=== PATIENT | female | born 1960 | race Caucasian/White ===

== ENCOUNTER 2016-07-22 13:19 | Emergency (ER) | payer BC ==
[2016-07-22] MEDS ORDERED: methylPREDNISolone SOD SUCC* 125 MG 2 ML VIAL IV ONE (13:20)
[2016-07-22] MEDS ORDERED: diPHENhydraMINE IV* 50 MG/ML 1 ml VIAL (BENADRYL) IV ONE (13:20)
[2016-07-22] MEDS ORDERED: Famotidine IV* 10 MG/ML 2 ML (20 mg) IV ONE (13:20)
[2016-07-22] MEDS ORDERED: EPINEPHrine AMP 1 MG/ML IM ONE (13:21)
[2016-07-22] MEDS: NS 0.9% 1000 ML* 2,000 ML IV ONE (13:25)
[2016-07-22 15:20] VITALS: BP 121/88
--- NOTE | 2016-07-22 15:20 | ED ---
Nathan Cade Adam, scribed for Cortez Johnson MD on 07/22/16 at 1328 . Allergic Reaction/Systemic - HPI Summary HPI Summary: Pt is a 55 year old female presenting with an apparent allergic reaction. She states that after having lunch at [facility] she began to feel dizzy and shortly afterwards developed a rash. She denies losing consciousness. She presents with generalized erythema over her body and she also c/o numbness in her lips and tongue. Pt states that she ate scallop potatoes with ham and stir fried bok linda for lunch. Pt also reports that she had a ALEXIS this morning for which she took Tylenol. - History of Current Complaint Chief Complaint: EDAllergicReaction Hx Obtained From: Patient Onset/Duration: Sudden Onset, Started minutes ago, Still Present Timing: Constant Severity Initially: Moderate Severity Currently: Moderate Location: Diffuse Aggravating Factor(s): Other - Lunch, possibly Alleviating Factor(s): Nothing Associated Signs And Symptoms: Positive: Rash, Other: - Dizziness, numbness of lips and tongue - Allergies/Home Medications Allergies/Adverse Reactions: Allergies Allergy/AdvReac Type Severity Reaction Status Date / Time Polymyxin B Allergy Rash And Verified 07/22/16 13:51 Itching MONASTAT Allergy Intermediate Hives Uncoded 07/22/16 13:51 PMH/Surg Hx/FS Hx/Imm Hx Endocrine/Hematology History: Denies: Hx Diabetes Cardiovascular History: Reports: Hx Angina, Other Cardiovascular Problems/ Disorders - RBBB ASYMPTOMATIC Respiratory History: Denies: Hx Asthma, Hx Chronic Obstructive Pulmonary Disease (COPD) GI History: Reports: Other GI Disorders - GALLBLADDER WITH RUQ PAIN History: Reports: Other Problems/Disorders - ONLY HAS 1 KIDNEY Musculoskeletal History: Reports: Other Musculoskeletal History - LOW BACK PAIN Sensory History: Reports: Hx Contacts or Glasses Denies: Hx Hearing Aid Opthamlomology History: Reports: Hx Contacts or Glasses Neurological History: Reports: Hx Migraine - POST MENOPAUSAL STARTED 07/2015 H/ A NO MEDS - Cancer History Hx Chemotherapy: No Hx Radiation Therapy: No - Surgical History Hx Anesthesia Reactions: No - Family History Known Family History: Positive: Other - Negative: malignant hyperthermia, anesthesia reaction, breast CA - Social History Occupation: Employed Full-time Lives: With Family - Alcohol Use: Weekly Alcohol Amount: 1-2 GLASSES WINE WEEKLY Hx Substance Use: No Substance Use Type: Reports: None Hx Tobacco Use: No Smoking Status (MU): Never Smoked Tobacco Review of Systems Negative: Fever Positive: Rash Neurological: Other - Dizziness Positive: Numbness - Lips and tongue All Other Systems Reviewed And Are Negative: Yes Physical Exam Triage Information Reviewed: Yes Vital Signs On Initial Exam: Initial Vitals Temp Pulse Resp BP Pulse Ox 97.8 F 104 14 74/50 98 07/22/16 13:20 07/22/16 13:20 07/22/16 13:20 07/22/16 13:20 07/22/16 13:20 Vital Signs Reviewed: Yes Appearance: Positive: Well-Appearing, No Pain Distress Skin: Positive: Other - Generalized erythema with blanching rash Head/Face: Positive: Normal Head/Face Inspection Eyes: Positive: EOMI, LUANN ENT: Positive: Normal ENT inspection Neck: Positive: Supple, Nontender Respiratory/Lung Sounds: Positive: Clear to Auscultation, Breath Sounds Present Cardiovascular: Positive: Other - Hypotensive Abdomen Description: Positive: Nontender, Soft Bowel Sounds: Positive: Present Musculoskeletal: Positive: Normal, Strength/ROM Intact Neurological: Positive: Normal, Sensory/Motor Intact, Alert, Oriented to Person Place, Time Psychiatric: Positive: Affect/Mood Appropriate Diagnostics - Vital Signs Vital Signs Temp Pulse Resp BP Pulse Ox 07/22/16 15:00 70 12 98 07/22/16 14:45 72 13 98 07/22/16 14:30 77 13 104/53 99 07/22/16 14:15 75 13 98 07/22/16 14:00 76 16 148/135 99 07/22/16 13:46 72 15 174/107 96 07/22/16 13:41 72 13 170/152 96 07/22/16 13:40 66 98/42 07/22/16 13:25 95 97/57 07/22/16 13:20 97.8 F 93 14 58/43 98 - Laboratory Lab Statement: Any lab studies that have been ordered have been reviewed, and results considered in the medical decision making process. Allergic Reaction Course/Dx - Course Course Of Treatment: Ingredients of the patient's lunch were reviewed with the kitchen staff and the pt states that there was nothing she ate today that she does not eat regularly. Assessment/Plan: IMPROVED IN ED. DISCHARGE HOME STABLE. - Diagnoses Provider Diagnoses: Allergic reaction Discharge - Discharge Plan Condition: Stable Disposition: HOME Prescriptions: Epinephrine [Epipen 2-Parish] 0.3 mg IM ONCE PRN #1 inj PRN Reason: Allergy Symptoms Famotidine TAB* [Pepcid 20 MG TAB*] 20 mg PO BID #10 tab predniSONE TAB* [Deltasone TAB*] 40 mg PO DAILY PRN #8 tab PRN Reason: Allergy Symptoms Patient Education Materials: Anaphylaxis (ED) Referrals: Hung Martinez [facility] [facility] [Primary Care Provider] - Additional Instructions: FOLLOW UP WITH YOUR DOCTOR. RETURN TO THE EMERGENCY DEPARTMENT FOR ANY WORSENING OF YOUR CONDITION; ALLERGIC REACTION, DIFFICULTY WITH SWALLOWING OR BREATHING OR QUESTIONS OR CONCERNS. The documentation as recorded by the Nathan combs Adam accurately reflects the service I personally performed and the decisions made by me, Cortez Johnson MD.
== END 2016-07-22 15:44 | disposition home or self-care (01) ==
LOC: ED 13:19
DX: T78.40XA Allergy, unspecified, initial encounter (principal); R21 Rash and other nonspecific skin eruption; X58.XXXA Exposure to other specified factors, initial encounter; R42 Dizziness and giddiness
CPT/HCPCS: 96374; 96375; 99283